=== PATIENT | female | born 1995 | race Caucasian/White ===

== ENCOUNTER 2017-08-30 21:19 | Emergency (ER) | payer MEDICAID ==
[~2017-08-30] VITALS: Ht 154.9 cm; Wt 68.9 kg
[2017-08-30 21:20] VITALS: BP_SYST 134
[2017-08-30] MEDS ORDERED: IBUPROFEN 600 MG TABLET PO ONE (21:45)
[2017-08-30 22:02] LABS: BILIRUBIN,URINE NEGATIVE (NEGATIVE); BLOOD, URINE NEGATIVE (NEGATIVE); CLARITY/URINE CLEAR (CLEAR); COLOR,URINE YELLOW (YELLOW); GLUCOSE,URINE NEGATIVE (NEGATIVE); KETONES,URINE NEGATIVE (NEGATIVE); LEUKOCYTE ESTERASE ,URINE NEGATIVE (NEGATIVE); NITRITE, URINE NEGATIVE (NEGATIVE); PROTEIN URINE NEGATIVE (NEGATIVE); UROBILINOGEN,URINE 0.2 (0.2-1.0)
[2017-08-30 22:10] LABS: HCG,QUAL RESULT NEGATIVE (NEGATIVE)
[2017-08-30 22:55] VITALS: BP_SYST 115
== END 2017-08-30 22:55 | disposition home or self-care (01) ==
LOC: SED 21:19
DX: R07.89 Other chest pain (principal); R06.02 Shortness of breath
CPT/HCPCS: 71045; 81003; 81025; 84703; 93005; 99285

== ENCOUNTER 2018-08-12 10:19 | Emergency (ER) | payer MEDICAID ==
[~2018-08-12] VITALS: Ht 157.5 cm; Wt 68.9 kg
[2018-08-12 10:20] VITALS: BP_SYST 131
--- NOTE | 2018-08-12 10:20 | NUR ---
BROUGHT BACK TO BED #2 AND TRIAGED. REPORT GIVEN TO JAYNE
--- NOTE | 2018-08-12 10:34 | NUR ---
DR TORRES AT BEDSIDE FOR EVALUATION
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
[2018-08-12] MEDS ORDERED: KETOROLAC TROMETHAMINE 60 MG/2 ML VIAL IM ONE (11:30)
--- NOTE | 2018-08-12 11:40 | NUR ---
PATIENT WHEELED TO RADIOLOGY
--- NOTE | 2018-08-12 11:54 | NUR ---
PATIENT BACK FROM RADIOLOGY
--- NOTE | 2018-08-12 13:52 | NUR ---
Patient given written and verbal discharge instructions and verbalizes understanding. ER MD Banda discussed with patient the results and treatment provided. Patient in stable condition. ID arm band removed. Rx of Motrin 600 mg TID prn given. Patient educated on pain management and to follow up with PMD. Pain Scale 2. Opportunity for questions provided and answered. Medication side effect fact sheet provided.
[2018-08-12 13:53] VITALS: BP_SYST 127
== END 2018-08-12 13:52 | disposition home or self-care (01) ==
LOC: SED 10:19
DX: S13.4XXA Sprain of ligaments of cervical spine, initial encounter (principal); S33.5XXA Sprain of ligaments of lumbar spine, initial encounter; S00.511A Abrasion of lip, initial encounter; R03.0 Elevated blood-pressure reading, without diagnosis of hypertension; V43.52XA Car driver injured in collision with other type car in traffic accident, initial encounter; Y93.89 Activity, other specified; Y92.410 Unspecified street and highway as the place of occurrence of the external cause; Y99.8 Other external cause status
CPT/HCPCS: 72040; 72100; 81025; 96372; 99283; J1885